=== PATIENT | female | born 1945 | race Caucasian/White ===

== ENCOUNTER 2017-06-03 08:39 | Inpatient (IN) | payer MEDICARE, MEDICAID ==
[~2017-06-03] VITALS: Ht 167.6 cm; Wt 54.4 kg
[2017-06-03] MEDS ORDERED: ALBUTEROL SULF 2.5 MG/0.5ML(0.5%) NEB SOLN NEB ONE (12:15)
[2017-06-03] MEDS ORDERED: methylPREDNISolone SOD SUCC 125 MG/2 ML VL IV ONE (12:15)
[2017-06-03] MEDS ORDERED: IPRATROPIUM BROM 0.5 MG/2.5ML INH SOL NEB ONE (12:15)
[2017-06-03 12:23] LABS: Basophils # (auto) 0.1 uL; Basophils % (auto) 1.1 % (0.0-2.0); Eosinophils # (auto) 0.1 uL; Eosinophils % (auto) 1.1 % (0.0-7.0); Hematocrit 39.5 % (36.0-46.0); Lymphocytes # (auto) 1.8 uL; Lymphocytes % (auto) 15.1 % (10.0-50.0); Mean Corpuscular Hemoglobin 30.5 pg (28.0-32.0); Mean Corpuscular Hgb Conc. 32.8 g/dL (32.0-36.0); Monocytes # (auto) 0.7 uL; Monocytes % (auto) 5.6 % (0.0-12.0); Neutrophils # (auto) 9.1 uL; Neutrophils % (auto) 77.1 % (37.0-80.0); Nucleated Red Blood Cells % 0.1 %; Platelet Count (auto) 325 10^3/uL (140-450); Red Blood Cells 4.25 10^6/uL (4.0-5.20); Red Cell Distribution Width 13.4 % (11.8-14.3); White Blood Cell 11.8 10^3/uL (4.4-10.8)
[2017-06-03 12:50] LABS: Albumin 3.6 g/dL (3.4-5.0); BUN/Creatinine Ratio 21.7; Bilirubin, Total 0.5 mg/dL (0.2-1.0); Calcium 8.6 mg/dL (8.5-10.1); Potassium 3.6 mmol/L (3.5-5.1); Total Protein 7.3 g/dL (6.4-8.2)
[2017-06-03] MEDS ORDERED: LORazepam 0.5 MG TAB PO PRN (15:30)
[2017-06-03] MEDS ORDERED: LACTULOSE 20Gm/30ML SOLN PO PRN (15:30)
[2017-06-03] MEDS ORDERED: NITROGLYCERIN 0.4 MG SL TAB SL PRN (15:30)
[2017-06-03] MEDS ORDERED: OSELTAMIVIR 75 MG CAP PO ONE (15:30)
[2017-06-03] MEDS ORDERED: ALBUTEROL SULF 2.5 MG/0.5ML(0.5%) NEB SOLN NEB PRN (15:30)
[2017-06-03] MEDS ORDERED: TEMAZEPAM 15 MG CAP PO PRN (15:30)
[2017-06-03] MEDS ORDERED: PROMETHAZINE HCL 25 MG/ML 1ML IV PRN (15:30)
[2017-06-03] MEDS ORDERED: MORPHINE SULFATE 10 MG/ML INJ 1ML SDV IV PRN ×2 (15:30)
[2017-06-03] MEDS ORDERED: ENOXAPARIN SOD 40 MG/0.4 ML SYRINGE SC ONE (16:36)
[2017-06-03] MEDS: SODIUM CHLORIDE 0.9% 1,000 ML IV SCH (17:10)
[2017-06-03] MEDS: DOXYCYCLINE HYC 100MG/250ML 250 ML IV SCH (17:11)
[2017-06-03] MEDS: ENALAPRIL MALEATE 2.5 MG TAB PO SCH (17:11)
[2017-06-03] MEDS: methylPREDNISolone SOD SUCC 40 MG/ML VL IV SCH (18:09)
[2017-06-03] MEDS: IPRATROPIUM BROM 0.5 MG/2.5ML INH SOL NEB SCH (18:40)
[2017-06-03] MEDS: ALBUTEROL SULF 2.5 MG/0.5ML(0.5%) NEB SOLN NEB SCH (18:40)
[2017-06-03 20:37] VITALS: BP 147/80
[2017-06-03 20:47] VITALS: BP 139/78
[2017-06-03 21:15] VITALS: BP 139/78
[2017-06-03] MEDS: METOPROLOL TARTRATE 25 MG TAB PO SCH (21:52)
[2017-06-03] MEDS: ATORVASTATIN 20 MG TAB PO SCH (21:52)
[2017-06-03] MEDS ORDERED: OSELTAMIVIR 75 MG CAP PO SCH (22:00)
[2017-06-04] MEDS: methylPREDNISolone SOD SUCC 40 MG/ML VL IV SCH ×5 (00:29→23:54)
[2017-06-04] MEDS: IPRATROPIUM BROM 0.5 MG/2.5ML INH SOL NEB SCH ×4 (00:55→18:52)
[2017-06-04] MEDS: ALBUTEROL SULF 2.5 MG/0.5ML(0.5%) NEB SOLN NEB SCH ×4 (00:55→18:52)
[2017-06-04] MEDS: DOXYCYCLINE HYC 100MG/250ML 250 ML IV SCH ×2 (03:02→14:30)
[2017-06-04] MEDS: SODIUM CHLORIDE 0.9% 1,000 ML IV SCH ×2 (04:50→18:01)
[2017-06-04 05:35] VITALS: BP 168/78
[2017-06-04] MEDS: METOPROLOL TARTRATE 25 MG TAB PO SCH ×2 (06:08→21:21)
[2017-06-04] MEDS: ENALAPRIL MALEATE 2.5 MG TAB PO SCH (06:09)
[2017-06-04] MEDS: HYDROcodone-ACET 5/325MG TAB PO PRN ×4 (06:09→22:01)
[2017-06-04 07:18] LABS: Cholesterol 199 mg/dL (< 200); HDL Cholesterol 90 mg/dL (40-59); LDL Cholesterol 99 mg/dL (< 100); Triglycerides 146 mg/dL (< 150)
[2017-06-04] MEDS ORDERED: HYDR-4683 PO (08:09)
[2017-06-04] MEDS ORDERED: TIOTCAP IN (08:09)
[2017-06-04] MEDS ORDERED: ALBUAER3 IN (08:09)
[2017-06-04] MEDS ORDERED: PRE5T PO (08:09)
[2017-06-04 09:00] VITALS: BP 160/86
[2017-06-04] MEDS: NITROGLYCERIN 0.2MG/HR TOPICAL PATCH TD SCH (10:00)
[2017-06-04] MEDS: ASPirin 81 mg TAB PO SCH (10:11)
[2017-06-04] MEDS: ENOXAPARIN SOD 40 MG/0.4 ML SYRINGE SC SCH (10:12)
[2017-06-04 13:00] VITALS: BP 151/81
[2017-06-04 14:00] LABS: Alcohol, Urine < 3.0 mg/dL (0-5); Amphetamine Screen, Urine NEGATIVE (NEGATIVE); Barbiturate Scree,Urine NEGATIVE (NEGATIVE); Benzodiazephine Screen, Urine NEGATIVE (NEGATIVE); Cannabinoid Screen, Urine NEGATIVE (NEGATIVE); Cocaine Screen, Urine NEGATIVE (NEGATIVE); Opiate Scree,Urine NEGATIVE (NEGATIVE); Phencyclidine Screen, Urine NEGATIVE (NEGATIVE)
[2017-06-04 14:46] LABS: Basophils # (auto) 0 uL; Basophils % (auto) 0.5 % (0.0-2.0); Eosinophils # (auto) 0 uL; Hematocrit 37.6 % (36.0-46.0); Hemoglobin 12.6 g/dL (12.2-16.2); Lymphocytes # (auto) 0.7 uL; Lymphocytes % (auto) 8.2 % (10.0-50.0); Mean Corpuscular Hemoglobin 31.2 pg (28.0-32.0); Mean Corpuscular Hgb Conc. 33.4 g/dL (32.0-36.0); Mean Corpuscular Volume 93.2 fL (80.0-100.0); Monocytes # (auto) 0.2 uL; Monocytes % (auto) 2.5 % (0.0-12.0); Neutrophils # (auto) 7.2 uL; Neutrophils % (auto) 88.8 % (37.0-80.0); Platelet Count (auto) 316 10^3/uL (140-450); Red Blood Cells 4.03 10^6/uL (4.0-5.20); Red Cell Distribution Width 13.7 % (11.8-14.3); White Blood Cell 8.1 10^3/uL (4.4-10.8)
[2017-06-04 15:10] LABS: Alanine Aminotransferase 22 U/L (13-56); Alkaline Phosphatase 165 U/L (45-117); Anion Gap 8 (5-15); Aspartate Aminotransferase 19 U/L (15-37); BUN/Creatinine Ratio 32.1; Bilirubin, Total 0.3 mg/dL (0.2-1.0); Blood Urea Nitrogen 25 mg/dL (7-18); Calcium 8.2 mg/dL (8.5-10.1); Carbon Dioxide 30 mmol/L (21-32); Chloride 94 mmol/L (98-107); GFR African American 93 mL/min; GFR Non-African American 77 mL/min; Glucose 172 mg/dL (74-106); Potassium 3.9 mmol/L (3.5-5.1); Sodium 132 mmol/L (136-145); Total Protein 6.6 g/dL (6.4-8.2)
[2017-06-04 16:00] VITALS: BP 151/92
[2017-06-04] MEDS: PANTOPRAZOLE 40 MG/10 ML VIAL IV SCH ×2 (17:01→21:22)
[2017-06-04] MEDS: ATORVASTATIN 20 MG TAB PO SCH (21:20)
[2017-06-04 22:31] VITALS: BP 160/63
[2017-06-05] MEDS: ALBUTEROL SULF 2.5 MG/0.5ML(0.5%) NEB SOLN NEB SCH ×4 (00:19→19:20)
[2017-06-05] MEDS: IPRATROPIUM BROM 0.5 MG/2.5ML INH SOL NEB SCH ×4 (00:19→19:19)
[2017-06-05] MEDS: DOXYCYCLINE HYC 100MG/250ML 250 ML IV SCH ×2 (02:49→14:50)
[2017-06-05] MEDS: HYDROcodone-ACET 5/325MG TAB PO PRN ×2 (04:20→11:17)
[2017-06-05 05:33] VITALS: BP 168/77
[2017-06-05] MEDS: methylPREDNISolone SOD SUCC 40 MG/ML VL IV SCH ×4 (05:42→23:50)
[2017-06-05] MEDS: SODIUM CHLORIDE 0.9% 1,000 ML IV SCH (07:21)
[2017-06-05 09:00] VITALS: BP 168/93
[2017-06-05] MEDS: ENOXAPARIN SOD 40 MG/0.4 ML SYRINGE SC SCH ×2 (09:15→09:29)
[2017-06-05] MEDS: PANTOPRAZOLE 40 MG/10 ML VIAL IV SCH ×2 (09:16→21:45)
[2017-06-05] MEDS: ENALAPRIL MALEATE 2.5 MG TAB PO SCH (09:16)
[2017-06-05] MEDS: ASPirin 81 mg TAB PO SCH (09:16)
[2017-06-05] MEDS: METOPROLOL TARTRATE 25 MG TAB PO SCH ×2 (09:17→21:45)
[2017-06-05] MEDS: NITROGLYCERIN 0.2MG/HR TOPICAL PATCH TD SCH (09:17)
[2017-06-05 09:21] LABS: Basophils # (auto) 0 uL; Basophils % (auto) 0.1 % (0.0-2.0); Eosinophils # (auto) 0 uL; Hematocrit 37.4 % (36.0-46.0); Hemoglobin 12.2 g/dL (12.2-16.2); Lymphocytes # (auto) 0.5 uL; Mean Corpuscular Hemoglobin 30.6 pg (28.0-32.0); Mean Corpuscular Hgb Conc. 32.5 g/dL (32.0-36.0); Mean Corpuscular Volume 94.2 fL (80.0-100.0); Monocytes # (auto) 0.1 uL; Neutrophils % (auto) 93.9 % (37.0-80.0); Platelet Count (auto) 309 10^3/uL (140-450); Red Blood Cells 3.97 10^6/uL (4.0-5.20); Red Cell Distribution Width 13.7 % (11.8-14.3); White Blood Cell 9.5 10^3/uL (4.4-10.8)
[2017-06-05 09:42] LABS: BUN/Creatinine Ratio 29.1; Calcium 8.3 mg/dL (8.5-10.1); Magnesium 2.1 mg/dL (1.6-2.6); Phosphorus 3.1 mg/dL (2.5-4.90); Potassium 4.5 mmol/L (3.5-5.1)
[2017-06-05 13:00] VITALS: BP 157/82
[2017-06-05] MEDS: OXYCODONE HCL 5MG TAB PO PRN ×2 (16:21→22:44)
[2017-06-05 17:00] VITALS: BP 147/82
[2017-06-05] MEDS ORDERED: OXYCODONE HCL 5MG TAB PO SCH (18:00)
[2017-06-05] MEDS: ATORVASTATIN 20 MG TAB PO SCH (21:45)
[2017-06-05 22:00] VITALS: BP 157/80
[2017-06-06] MEDS: IPRATROPIUM BROM 0.5 MG/2.5ML INH SOL NEB SCH ×4 (00:46→18:00)
[2017-06-06] MEDS: ALBUTEROL SULF 2.5 MG/0.5ML(0.5%) NEB SOLN NEB SCH ×4 (00:46→18:00)
[2017-06-06] MEDS: DOXYCYCLINE HYC 100MG/250ML 250 ML IV SCH ×2 (03:50→15:11)
[2017-06-06] MEDS: SODIUM CHLORIDE 0.9% 1,000 ML IV SCH ×3 (03:54→23:17)
[2017-06-06] MEDS: OXYCODONE HCL 5MG TAB PO PRN ×4 (04:47→23:56)
[2017-06-06 05:00] VITALS: BP 153/89
[2017-06-06 05:21] LABS: Basophils # (auto) 0 uL; Basophils % (auto) 0.1 % (0.0-2.0); Eosinophils # (auto) 0 uL; Hematocrit 33.8 % (36.0-46.0); Hemoglobin 11.4 g/dL (12.2-16.2); Lymphocytes # (auto) 0.6 uL; Lymphocytes % (auto) 6.7 % (10.0-50.0); Mean Corpuscular Hemoglobin 31.5 pg (28.0-32.0); Mean Corpuscular Hgb Conc. 33.6 g/dL (32.0-36.0); Mean Corpuscular Volume 93.5 fL (80.0-100.0); Monocytes # (auto) 0.3 uL; Monocytes % (auto) 2.9 % (0.0-12.0); Neutrophils # (auto) 8.6 uL; Neutrophils % (auto) 90.3 % (37.0-80.0); Platelet Count (auto) 296 10^3/uL (140-450); Red Blood Cells 3.61 10^6/uL (4.0-5.20); Red Cell Distribution Width 13.7 % (11.8-14.3); White Blood Cell 9.5 10^3/uL (4.4-10.8)
[2017-06-06] MEDS: methylPREDNISolone SOD SUCC 40 MG/ML VL IV SCH ×4 (05:44→23:55)
[2017-06-06 05:46] LABS: BUN/Creatinine Ratio 20.5; Magnesium 2.3 mg/dL (1.6-2.6); Phosphorus 2.9 mg/dL (2.5-4.90)
[2017-06-06 09:00] VITALS: BP 154/58
[2017-06-06] MEDS: NITROGLYCERIN 0.2MG/HR TOPICAL PATCH TD SCH (10:00)
[2017-06-06] MEDS: METOPROLOL TARTRATE 25 MG TAB PO SCH ×2 (10:08→21:30)
[2017-06-06] MEDS: PANTOPRAZOLE 40 MG/10 ML VIAL IV SCH ×2 (10:08→21:31)
[2017-06-06] MEDS: ASPirin 81 mg TAB PO SCH (10:08)
[2017-06-06] MEDS: ENALAPRIL MALEATE 2.5 MG TAB PO SCH (10:08)
[2017-06-06] MEDS: ENOXAPARIN SOD 40 MG/0.4 ML SYRINGE SC SCH (10:10)
[2017-06-06] MEDS: hydrALAZINE HCL 25 MG TAB PO PRN ×2 (13:07→22:41)
[2017-06-06 16:32] LABS: Urine Bacteria NONE SEEN /hpf (None Seen); Urine Blood Negative /uL (Negative); Urine Mucus FEW (None Seen); Urine Specific Gravity 1.011 (1.001-1.035); Urine WBC <1 /hpf (0 - 5)
[2017-06-06 17:00] VITALS: BP 157/81
[2017-06-06] MEDS: ACETAMINOPHEN 500 MG TAB PO PRN (20:19)
[2017-06-06 21:09] VITALS: BP 137/81
[2017-06-06] MEDS: ATORVASTATIN 20 MG TAB PO SCH (21:30)
[2017-06-06 23:50] VITALS: BP 161/81
[2017-06-07] MEDS: DOXYCYCLINE HYC 100MG/250ML 250 ML IV SCH (03:40)
[2017-06-07] MEDS: ACETAMINOPHEN 500 MG TAB PO PRN ×2 (03:59→16:55)
[2017-06-07 05:00] VITALS: BP 159/76
[2017-06-07] MEDS: methylPREDNISolone SOD SUCC 40 MG/ML VL IV SCH ×3 (05:39→18:23)
[2017-06-07] MEDS: hydrALAZINE HCL 25 MG TAB PO PRN ×2 (05:40→18:24)
[2017-06-07] MEDS: ALBUTEROL SULF 2.5 MG/0.5ML(0.5%) NEB SOLN NEB SCH ×4 (06:00→19:08)
[2017-06-07] MEDS: IPRATROPIUM BROM 0.5 MG/2.5ML INH SOL NEB SCH ×4 (06:00→19:08)
[2017-06-07 06:19] LABS: Basophils # (auto) 0 uL; Basophils % (auto) 0.1 % (0.0-2.0); Eosinophils # (auto) 0 uL; Hematocrit 34.8 % (36.0-46.0); Hemoglobin 11.6 g/dL (12.2-16.2); Lymphocytes # (auto) 0.5 uL; Lymphocytes % (auto) 6.4 % (10.0-50.0); Mean Corpuscular Hemoglobin 31.3 pg (28.0-32.0); Mean Corpuscular Hgb Conc. 33.3 g/dL (32.0-36.0); Monocytes # (auto) 0.2 uL; Monocytes % (auto) 2.8 % (0.0-12.0); Neutrophils # (auto) 7.2 uL; Neutrophils % (auto) 90.7 % (37.0-80.0); Platelet Count (auto) 278 10^3/uL (140-450); Red Cell Distribution Width 13.5 % (11.8-14.3); White Blood Cell 7.9 10^3/uL (4.4-10.8)
[2017-06-07] MEDS: OXYCODONE HCL 5MG TAB PO PRN ×3 (06:25→18:24)
[2017-06-07 06:42] LABS: BUN/Creatinine Ratio 34.4; Calcium 8.2 mg/dL (8.5-10.1); Magnesium 2.5 mg/dL (1.6-2.6); Phosphorus 2.7 mg/dL (2.5-4.90); Potassium 4.3 mmol/L (3.5-5.1)
[2017-06-07 06:57] VITALS: BP 159/83
[2017-06-07] MEDS: ENALAPRIL MALEATE 2.5 MG TAB PO SCH (08:03)
[2017-06-07] MEDS: METOPROLOL TARTRATE 25 MG TAB PO SCH ×2 (08:04→21:51)
[2017-06-07 09:00] VITALS: BP 207/107
[2017-06-07] MEDS: PANTOPRAZOLE 40 MG/10 ML VIAL IV SCH ×2 (09:45→21:50)
[2017-06-07] MEDS: ASPirin 81 mg TAB PO SCH (09:45)
[2017-06-07] MEDS: ENOXAPARIN SOD 40 MG/0.4 ML SYRINGE SC SCH ×2 (09:46→09:49)
[2017-06-07] MEDS: NITROGLYCERIN 0.2MG/HR TOPICAL PATCH TD SCH (09:46)
[2017-06-07] MEDS: SODIUM CHLORIDE 0.9% 1,000 ML IV SCH (12:41)
[2017-06-07 13:00] VITALS: BP 166/67
[2017-06-07] MEDS ORDERED: NICOTINE 21MG/24 HR TOPICAL PATCH TD ONE (13:00)
[2017-06-07 17:00] VITALS: BP 164/88
[2017-06-07] MEDS: ATORVASTATIN 20 MG TAB PO SCH (21:51)
[2017-06-07 22:00] VITALS: BP 162/82
[2017-06-07] MEDS: BUDESONIDE (INHALATION) 0.5 MG/2 ML NEB NEB SCH (22:30)
[2017-06-08] MEDS: methylPREDNISolone SOD SUCC 40 MG/ML VL IV SCH ×4 (00:32→17:41)
[2017-06-08] MEDS: OXYCODONE HCL 5MG TAB PO PRN ×4 (00:33→21:11)
[2017-06-08] MEDS: SODIUM CHLORIDE 0.9% 1,000 ML IV SCH ×2 (02:19→15:21)
[2017-06-08] MEDS: ACETAMINOPHEN 500 MG TAB PO PRN ×2 (03:43→17:12)
[2017-06-08 05:00] VITALS: BP 167/96
[2017-06-08] MEDS: hydrALAZINE HCL 25 MG TAB PO PRN ×2 (05:38→12:00)
[2017-06-08] MEDS: IPRATROPIUM BROM 0.5 MG/2.5ML INH SOL NEB SCH ×5 (07:15→18:00)
[2017-06-08] MEDS: ALBUTEROL SULF 2.5 MG/0.5ML(0.5%) NEB SOLN NEB SCH ×5 (07:15→18:00)
[2017-06-08 09:00] VITALS: BP 175/93
[2017-06-08] MEDS: ENALAPRIL MALEATE 2.5 MG TAB PO SCH (09:48)
[2017-06-08] MEDS: ASPirin 81 mg TAB PO SCH (09:49)
[2017-06-08] MEDS: PANTOPRAZOLE 40 MG/10 ML VIAL IV SCH ×2 (09:50→21:09)
[2017-06-08] MEDS: METOPROLOL TARTRATE 25 MG TAB PO SCH ×2 (09:50→21:13)
[2017-06-08] MEDS: NITROGLYCERIN 0.2MG/HR TOPICAL PATCH TD SCH (09:51)
[2017-06-08] MEDS: ENOXAPARIN SOD 40 MG/0.4 ML SYRINGE SC SCH (09:51)
[2017-06-08] MEDS: BUDESONIDE (INHALATION) 0.5 MG/2 ML NEB NEB SCH ×2 (10:50→19:03)
[2017-06-08 13:00] VITALS: BP 157/83
[2017-06-08] MEDS ORDERED: NICOTINE 21MG/24 HR TOPICAL PATCH TD ONE (13:15)
[2017-06-08 16:34] VITALS: BP 147/97
[2017-06-08 20:00] VITALS: BP 160/90
[2017-06-08] MEDS: ATORVASTATIN 20 MG TAB PO SCH (21:10)
[2017-06-08 22:00] VITALS: BP_SYST 149; BP_SYST 160; BP_DIAS 73; BP_DIAS 90
[2017-06-09] VITALS (7 sets, daily range): BP systolic 143–168; BP diastolic 78–96
[2017-06-09] MEDS: methylPREDNISolone SOD SUCC 40 MG/ML VL IV SCH ×4 (00:01→17:27)
[2017-06-09] MEDS: OXYCODONE HCL 5MG TAB PO PRN ×3 (03:00→16:36)
[2017-06-09] MEDS: SODIUM CHLORIDE 0.9% 1,000 ML IV SCH ×2 (04:41→18:01)
[2017-06-09] MEDS: BUDESONIDE (INHALATION) 0.5 MG/2 ML NEB NEB SCH ×2 (06:00→19:38)
[2017-06-09] MEDS: ALBUTEROL SULF 2.5 MG/0.5ML(0.5%) NEB SOLN NEB SCH ×4 (06:01→19:38)
[2017-06-09] MEDS: IPRATROPIUM BROM 0.5 MG/2.5ML INH SOL NEB SCH ×4 (06:01→19:38)
[2017-06-09] MEDS: ACETAMINOPHEN 500 MG TAB PO PRN (08:14)
[2017-06-09] MEDS: ENOXAPARIN SOD 40 MG/0.4 ML SYRINGE SC SCH ×2 (09:33→09:44)
[2017-06-09] MEDS: NITROGLYCERIN 0.2MG/HR TOPICAL PATCH TD SCH (09:35)
[2017-06-09] MEDS: NICOTINE 21MG/24 HR TOPICAL PATCH TD SCH (09:35)
[2017-06-09] MEDS: ASPirin 81 mg TAB PO SCH (09:36)
[2017-06-09] MEDS: ENALAPRIL MALEATE 2.5 MG TAB PO SCH (09:36)
[2017-06-09] MEDS: PANTOPRAZOLE 40 MG/10 ML VIAL IV SCH ×2 (09:37→22:02)
[2017-06-09] MEDS: METOPROLOL TARTRATE 25 MG TAB PO SCH ×2 (09:37→22:03)
[2017-06-09] MEDS: LEVOFLOXACIN 500MG 100 ML IV SCH (13:05)
[2017-06-09] MEDS: KETOROLAC TROMETH 30 MG/ML 1ML VIAL IV SCH (17:28)
[2017-06-09] MEDS: ACETYLCYSTEINE 20%(200MG/ML) SOL 4ML NEB SCH (19:41)
[2017-06-09] MEDS: ATORVASTATIN 20 MG TAB PO SCH (22:02)
[2017-06-10] MEDS: KETOROLAC TROMETH 30 MG/ML 1ML VIAL IV SCH ×5 (00:07→23:46)
[2017-06-10] MEDS: methylPREDNISolone SOD SUCC 40 MG/ML VL IV SCH ×3 (00:07→11:34)
[2017-06-10] MEDS: hydrALAZINE HCL 25 MG TAB PO PRN ×2 (01:35→11:33)
[2017-06-10] MEDS: OXYCODONE HCL 5MG TAB PO PRN ×6 (04:00→20:28)
[2017-06-10 05:10] VITALS: BP 149/99
[2017-06-10] MEDS: IPRATROPIUM BROM 0.5 MG/2.5ML INH SOL NEB SCH ×4 (06:52→19:52)
[2017-06-10] MEDS: ALBUTEROL SULF 2.5 MG/0.5ML(0.5%) NEB SOLN NEB SCH ×4 (06:52→19:52)
[2017-06-10] MEDS: ACETYLCYSTEINE 20%(200MG/ML) SOL 4ML NEB SCH ×3 (06:53→19:52)
[2017-06-10] MEDS: SODIUM CHLORIDE 0.9% 1,000 ML IV SCH (07:21)
[2017-06-10 09:10] VITALS: BP 169/98
[2017-06-10] MEDS: LEVOFLOXACIN 500MG 100 ML IV SCH (09:27)
[2017-06-10] MEDS: PANTOPRAZOLE 40 MG/10 ML VIAL IV SCH ×2 (09:28→22:18)
[2017-06-10] MEDS: ASPirin 81 mg TAB PO SCH (09:28)
[2017-06-10] MEDS: METOPROLOL TARTRATE 25 MG TAB PO SCH ×2 (09:29→22:18)
[2017-06-10] MEDS: ENALAPRIL MALEATE 2.5 MG TAB PO SCH (09:29)
[2017-06-10] MEDS: NITROGLYCERIN 0.2MG/HR TOPICAL PATCH TD SCH (09:30)
[2017-06-10] MEDS: ENOXAPARIN SOD 40 MG/0.4 ML SYRINGE SC SCH (09:31)
[2017-06-10] MEDS: NICOTINE 21MG/24 HR TOPICAL PATCH TD SCH (09:31)
[2017-06-10] MEDS: BUDESONIDE (INHALATION) 0.5 MG/2 ML NEB NEB SCH ×2 (10:01→22:00)
[2017-06-10 12:30] VITALS: BP 166/105
[2017-06-10 16:50] VITALS: BP 147/80
[2017-06-10] MEDS ORDERED: MORPHINE SULFATE 4 MG/ML SYR/VIAL IV PRN ×2 (18:15)
[2017-06-10 22:00] VITALS: BP 160/90
[2017-06-10] MEDS: ATORVASTATIN 20 MG TAB PO SCH (22:18)
[2017-06-11] MEDS: ACETAMINOPHEN 500 MG TAB PO PRN (00:34)
[2017-06-11 05:00] VITALS: BP 158/89
[2017-06-11] MEDS: KETOROLAC TROMETH 30 MG/ML 1ML VIAL IV SCH ×2 (05:59→11:47)
[2017-06-11] MEDS: ALBUTEROL SULF 2.5 MG/0.5ML(0.5%) NEB SOLN NEB SCH ×3 (06:40→14:00)
[2017-06-11] MEDS: IPRATROPIUM BROM 0.5 MG/2.5ML INH SOL NEB SCH ×3 (06:40→14:00)
[2017-06-11] MEDS: ACETYLCYSTEINE 20%(200MG/ML) SOL 4ML NEB SCH ×2 (06:40→14:00)
[2017-06-11 08:00] VITALS: BP 166/96
[2017-06-11] MEDS: OXYCODONE HCL 5MG TAB PO PRN (08:26)
[2017-06-11 09:00] VITALS: BP 166/96
[2017-06-11] MEDS: METOPROLOL TARTRATE 25 MG TAB PO SCH (09:35)
[2017-06-11] MEDS: ENALAPRIL MALEATE 2.5 MG TAB PO SCH (09:36)
[2017-06-11] MEDS: ASPirin 81 mg TAB PO SCH (09:36)
[2017-06-11] MEDS: NITROGLYCERIN 0.2MG/HR TOPICAL PATCH TD SCH (09:38)
[2017-06-11] MEDS: NICOTINE 21MG/24 HR TOPICAL PATCH TD SCH (09:38)
[2017-06-11] MEDS: PANTOPRAZOLE 40 MG/10 ML VIAL IV SCH (09:39)
[2017-06-11] MEDS: ENOXAPARIN SOD 40 MG/0.4 ML SYRINGE SC SCH (09:44)
[2017-06-11] MEDS ORDERED: LISINOPRIL 10 MG TAB PO SCH (10:00)
[2017-06-11] MEDS ORDERED: predniSONE 20 MG TAB PO SCH (10:00)
[2017-06-11] MEDS ORDERED: LEVOFLOXACIN 500 MG TAB PO SCH (10:00)
[2017-06-11] MEDS: BUDESONIDE (INHALATION) 0.5 MG/2 ML NEB NEB SCH (10:34)
[2017-06-11 11:52] VITALS: BP 150/86
[2017-06-11 12:31] VITALS: BP 150/86
== END 2017-06-11 14:35 | disposition home or self-care (01) | DRG 291 ==
LOC: ER 08:39 → TELE 08:49 → TELE-WESTW 20:57
PROVIDERS: ADMIT Internal Medicine; ATTEND Internal Medicine Pulmonary Disease
DX: I11.0 Hypertensive heart disease with heart failure (principal); N17.0 Acute kidney failure with tubular necrosis; J18.9 Pneumonia, unspecified organism; J96.12 Chronic respiratory failure with hypercapnia; J44.0 Chronic obstructive pulmonary disease with (acute) lower respiratory infection; J44.1 Chronic obstructive pulmonary disease with (acute) exacerbation; E87.1 Hypo-osmolality and hyponatremia; I50.33 Acute on chronic diastolic (congestive) heart failure; M54.5 Low back pain; R73.9 Hyperglycemia, unspecified; I16.0 Hypertensive urgency; F17.210 Nicotine dependence, cigarettes, uncomplicated; M81.0 Age-related osteoporosis without current pathological fracture; Z66 Do not resuscitate; Z90.49 Acquired absence of other specified parts of digestive tract; Z79.899 Other long term (current) drug therapy; Z79.82 Long term (current) use of aspirin
CPT/HCPCS: 36415; 36600; 71046; 72131; 80048; 80053; 80061; 80307; 81001; 82550; 82805; 83735; 83880; 84100; 84443; 84484; 85025; 85379; 85652; 86141; 87070; 87205; 87400; 93005; 93306; 94640; 96374; 97116; 97163; 97530; C9113; J1885; J1956; J3490